=== PATIENT | female | born 1970 | race Caucasian/White ===

== ENCOUNTER → 2022-04-06 01:28 | Outpatient (CLI) | payer BC, SELFPAY ==
--- NOTE | 2022-04-06 07:45 | DI.MAMMO_ITS ---
Exam(s) MAMMO SCREENING EXAM: MAMMO SCREENING CLINICAL HISTORY: screening,Z12.39 TECHNIQUE: Bilateral full field digital CC and MLO mammographic images were obtained with 3D tomosyn thesis and utilizing computer aided detection (CAD). COMPARISON: Available for comparison. FINDINGS: Masses/Architectural Distortion: There has been interval increase in size of the nodule in the upper outer quadrant of the right breast. It measures 8.4 mm compared to 5.5 mm. There is a question of a symmetric breast tissue inferior to the nodule on the MLO view. Microcalcifications: No suspicious pleomorphic-type are seen. Skin Thickening/Nipple Retraction: None. IMPRESSION: 1. Suspicious areas in the right breast as described above. These area should be further evaluated w ith spot compression views. 2. Ultrasound may be indicated at that time. BI-RADS Category 0 - Assessment Incomplete: Need additional imaging evaluation Breast Density - Category B - Scattered areas of fibroglandular density Breast density category C or D implies that the patient has dense breast tissue. Dense breast tissue is very common and is not abnormal but dense breast tissue can make it harder to find cancer on a ma mmogram. Also, dense breast tissue may increase their breast cancer risk. This information about the result of the mammogram report was provided to the patient to raise their awareness. Use this report when you speak with the patient about their risks for breast cancer, which includes their family hist ory. At that time, you may recommend for more screening tests (Ultrasound or MRI) as they might be us eful based on their risk. A negative radiographic report should not delay biopsy if a dominant or clinically suspicious mass is present. Up to ten percent of cancers are not identified on mammography. A negative report may reinforce clinical impression. Adenosis and dense breasts may obscure an underlying neoplasm. False positive reports average 6 to 10%. Patient will receive a letter notifying them of these results.
== END ==
PROVIDERS: PCP Nurse Practitioner Family; Visit Provider Nurse Practitioner Family
DX: Z12.31 Encounter for screening mammogram for malignant neoplasm of breast (principal); R92.8 Other abnormal and inconclusive findings on diagnostic imaging of breast; N63.11 Unspecified lump in the right breast, upper outer quadrant
CPT/HCPCS: 77063; 77067

== ENCOUNTER 2022-04-06 02:47 | Outpatient (CLI) | payer BC, SELFPAY ==
[2022-04-06 11:31] LABS: Abs Immature Grans 0.02 10^3/uL (0.0-0.06); Absolute Basophil Count 0.03 10^3/uL (0.0-0.2); Absolute Eosinophil Count 0.16 10^3/uL (0.0-0.7); Absolute Lymphocyte Count 2.32 10^3/uL (1.2-3.4); Absolute Monocyte Count 0.44 10^3/uL (0.1-0.8); Absolute Neutrophil Count 3.89 10^3/uL (1.2-6.7); Basophils % 0.4; Eosinophils % 2.3; HCT 43.7 % (36.0-46.0); HGB 14.3 g/dL (11.2-15.7); Immature Grans % 0.3; Lymphocytes % 33.8; MCH 29.3 pg (27.0-33.0); MCHC 32.7 % (32.0-36.0); MCV 90 fL (80-95); MPV 9.7 fL (8.0-11.0); Monocytes % 6.4; Neutrophils % 56.8; Platelet Count 287 10^3/uL (130-400); RBC 4.88 10^6/uL (3.93-5.22); RDW 12.5 % (11.7-14.6); RDW-SD 40.8 fL; WBC 6.86 10^3/uL (4.4-10.8)
[2022-04-06 11:48] LABS: ALT 73 U/L (14-59); AST 35 U/L (15-37); Albumin 4.1 g/dL (3.4-5.0); Alkaline Phosphatase 102 U/L (46-116); Anion Gap 7.4 mmol/L (3-11); BUN 17 mg/dL (7-18); Bilirubin, Total 0.4 mg/dL (0.2-1.0); CO2 28.6 mmol/L (21.0-32.0); Calcium 9.6 mg/dL (8.5-10.1); Calculated LDL 127 mg/dL (<100); Chloride 100 mmol/L (98-107); Cholesterol 226 mg/dL (<200); Estimated GFR 67.78 (mL/min/1.73m2); Glucose 87 mg/dL (74-106); HDL Cholesterol 68 mg/dL (40-60); Potassium 3.9 mmol/L (3.5-5.1); Sodium 136 mmol/L (136-145); TSH (W/Ref FT4) 2.15 uIU/mL (0.36-3.74); Total Protein 8.2 g/dL (6.4-8.2); Triglyceride 158 mg/dL (<150)
[2022-04-06 19:27] LABS: Rheumatoid Factor <8.6 IU/mL (<12.0)
[2022-04-07 09:34] LABS: Cyclic Citrullinated Peptide <2.5 U/mL (<5.0)
[2022-04-07 09:41] LABS: Hepatitis C Ab w Rflx HCV PCR Negative (Negative)
[2022-04-07 10:29] LABS: HIV-1/2 Ag & Ab Screen Negative (Negative)
[2022-04-08 16:01] LABS: ANA Interpretation Negative (Negative)
[2022-04-12 13:33] LABS: dsDNA Ab, IgG <12.3 IU/mL (<30.0)
== END 2022-04-06 02:48 | disposition home or self-care (01) ==
LOC: LBO 02:47
PROVIDERS: PCP Nurse Practitioner Family; Visit Provider Nurse Practitioner Family
DX: M32.9 Systemic lupus erythematosus, unspecified (principal); R63.5 Abnormal weight gain; M79.18 Myalgia, other site; M25.541 Pain in joints of right hand; M25.542 Pain in joints of left hand; Z13.220 Encounter for screening for lipoid disorders; Z86.2 Personal history of diseases of the blood and blood-forming organs and certain disorders involving the immune mechanism; Z11.4 Encounter for screening for human immunodeficiency virus [HIV]; Z11.59 Encounter for screening for other viral diseases
CPT/HCPCS: 36415; 80053; 80061; 86200; 86803; 87389; 84443; 85025; 86038; 86225; 86235; 86431

== ENCOUNTER 2022-04-20 02:31 | Outpatient (CLI) | payer OTHER, SELFPAY ==
--- NOTE | 2022-04-20 | DI.US_ITS ---
Exam(s) MG MAMMO SCREEN CALL BACK UNI US BREAST RT LIMITED EXAM: MG MAMMO SCREEN CALL BACK UNI CLINICAL HISTORY: F/U MAMMO, INTERVAL INCREASE SIZE OF NODULE UOQ RT BREAST,R92.8,? ASYMMETRI TECHNIQUE: Mammograms were interpreted according to the usual protocol including computer analysis w i-drive CAD system, tomosynthesis and C-view imaging. COMPARISON: FINDINGS: Additional mammographic views of the right breast and right breast ultrasound are interpreted in conj unction. These examinations were obtained to evaluate an area of nodularity in the 9 o'clock positio n in the right breast. This is well circumscribed but lobulated on mammography and has a similar palmer earance on ultrasound examination today. There is Alana lesional vascular flow but no definite intral esional vascular flow. The lesion measures about 6 by 5 millimeters in diameter and is horizontally oriented with cystic and solid internal components. Findings may represent an intramammary lymph nod e. Malignancy not entirely excluded but unlikely.review of prior mammogram from March 2015 shows a smaller but similarly shaped nodule in this location at that time which would also suggest this is an intra mammary lymph node which is somewhat larger on today's examination than previously seen. IMPRESSION: No specific evidence of malignancy. Follow-up unilateral left breast mammogram and left breast ultra sound recommended in 6 months. BI-RADS Category 3 - 6 month - Probably Benign Finding: Recommend follow-up mammography in 6 months Breast Density - Category B - Scattered areas of fibroglandular density
== END 2022-04-20 02:51 ==
PROVIDERS: PCP Nurse Practitioner Family; Visit Provider Nurse Practitioner Family
DX: Z12.31 Encounter for screening mammogram for malignant neoplasm of breast (principal); R92.8 Other abnormal and inconclusive findings on diagnostic imaging of breast; N63.11 Unspecified lump in the right breast, upper outer quadrant
CPT/HCPCS: 76642; 77063; 77067

== ENCOUNTER 2022-05-31 03:11 | Outpatient (CLI) | payer OTHER, SELFPAY ==
[2022-05-31 08:48] LABS: ALT 62 U/L (14-59); AST 28 U/L (15-37); Alkaline Phosphatase 102 U/L (46-116); Bilirubin, Direct 0.1 mg/dL (0.0-0.2); Bilirubin, Total 0.4 mg/dL (0.2-1.0); Total Protein 8.1 g/dL (6.4-8.2)
== END 2022-05-31 03:12 | disposition home or self-care (01) ==
LOC: LBO 03:11
PROVIDERS: PCP Nurse Practitioner Family; Visit Provider Nurse Practitioner Family
DX: R79.89 Other specified abnormal findings of blood chemistry (principal)
CPT/HCPCS: 36415; 80076

== ENCOUNTER 2022-11-04 00:45 | Outpatient (CLI) | payer OTHER, SELFPAY ==
--- NOTE | 2022-11-04 | DI.US_ITS ---
Exam(s) MG MAMMO DIAGNOSTIC UNI US BREAST RT LIMITED EXAM: MG MAMMO DIAGNOSTIC UNI and U/S breast RT limited CLINICAL HISTORY: per DI; 6 mo f/u abnormal mammo, ABNL MAMMO, R92.8. TECHNIQUE: Craniocaudal and mediolateral oblique Full Field Digital Mammography views of the right b reast with Computer Aided Diagnosis followed by Tomosynthesis and right breast ultrasound. COMPARISON: Comparison is made with prior examinations. FINDINGS: Mammography/Tomosynthesis: Masses/Architectural Distortion: There is a well-circumscribed nodule again seen in the outer right b reast which is unchanged. There are no areas of architectural distortion. Microcalcifictions: No suspicious pleomorphic-type are seen. Skin Thickening/Nipple Retraction: None. Limited right breast US: Echotexture: Normal appearance of the glandular tissue. Shadowing: No suspicious foci. Cyst: None. Solid lesions: The well-circumscribed hypoechoic nodule in the right breast is unchanged compared to the prior examination. Ductal dilation: None. IMPRESSION: 1. Stable appearance of a right breast nodule. 2. Follow-up examination in 6 months is recommended to include mammogram and right breast ultrasound. At that time, the patient should have there screening left mammogram. 3. The findings were discussed with the patient on the date of the examination. BI-RADS Category 3 - 6 month - Probably Benign Finding: Recommend follow-up imaging in 6 months Breast Density - Category B - Scattered areas of fibroglandular density Breast density Category C or D implies that the patient has dense breast tissue. Dense breast tissue can make it harder to find cancer on a mammogram. Dense breast tissue is also associated with an incr eased risk of breast cancer. This information about the result of the mammogram report was provided to the patient to raise their awareness. Use this report when you speak with the patient about their risks for breast cancer, which includes their family history. At that time, you may recommend additional screening tests (Ultrasoun d or MRI) as these tests may add significant information. A negative radiographic report should not delay biopsy if a dominant or clinically suspicious mass is present. Up to ten percent of cancers are not identified on mammography. A negative report may reinforce clinical impression. Adenosis and dense breasts may obscure an underlying neoplasm. False positive reports average 6 to 10%. Patient will receive a letter notifying them of these results.
== END 2022-11-04 01:05 ==
LOC: DI 00:46
PROVIDERS: PCP Nurse Practitioner Family; Visit Provider Nurse Practitioner Family
DX: R92.8 Other abnormal and inconclusive findings on diagnostic imaging of breast (principal); Z12.31 Encounter for screening mammogram for malignant neoplasm of breast
CPT/HCPCS: 76642; 77061; 77065; G0279

== ENCOUNTER → 2023-04-14 00:50 | Outpatient (CLI) | payer OTHER, SELFPAY ==
--- NOTE | 2023-04-14 07:45 | DI.US_ITS ---
Exam(s) US BREAST RT LIMITED MG MAMMO DIAGNOSTIC BI EXAM: MAMMO DIAGNOSTIC BI and U/S breast RT limited CLINICAL HISTORY: 6 mo f/u,r92.8. TECHNIQUE: Craniocaudal and mediolateral oblique Full Field Digital Mammography views of the bilater al breast with Computer Aided Diagnosis followed by Tomosynthesis and right breast ultrasound. COMPARISON: Comparison is made with prior examinations. FINDINGS: Mammography/Tomosynthesis: Masses/Architectural Distortion: The nodule in the upper outer quadrant of the right breast appears s maller compared to the prior examination. No new nodules are seen. No areas of architectural distor tion are present. Microcalcifictions: No suspicious pleomorphic-type are seen. Skin Thickening/Nipple Retraction: None. Limited right breast US: Echotexture: Normal appearance of the glandular tissue. Shadowing: No suspicious foci. Cyst: None. Solid lesions: The nodule at the 9 o'clock position of the right breast now measures 0.5 x 0.4 cm. T his compares to 0.6 x 0.7 cm. Ductal dilation: None. IMPRESSION: 1. No evidence of malignancy is noted. 2. A six-month follow-up right mammogram and ultrasound is requested for re-evaluation. 3. The findings were discussed with the patient on the date of the examination. BI-RADS Category 3 - 6 month - Probably Benign Finding: Recommend follow-up imaging in 6 months Breast Density - Category B - Scattered areas of fibroglandular density Breast density Category C or D implies that the patient has dense breast tissue. Dense breast tissue can make it harder to find cancer on a mammogram. Dense breast tissue is also associated with an incr eased risk of breast cancer. This information about the result of the mammogram report was provided to the patient to raise their awareness. Use this report when you speak with the patient about their risks for breast cancer, which includes their family history. At that time, you may recommend additional screening tests (Ultrasoun d or MRI) as these tests may add significant information. A negative radiographic report should not delay biopsy if a dominant or clinically suspicious mass is present. Up to ten percent of cancers are not identified on mammography. A negative report may reinforce clinical impression. Adenosis and dense breasts may obscure an underlying neoplasm. False positive reports average 6 to 10%. Patient will receive a letter notifying them of these results.
== END ==
PROVIDERS: PCP Nurse Practitioner Family; Visit Provider Nurse Practitioner Family
DX: Z12.31 Encounter for screening mammogram for malignant neoplasm of breast (principal); N63.15 Unspecified lump in the right breast, overlapping quadrants
CPT/HCPCS: 76642; 77062; 77066; G0279

== ENCOUNTER → 2023-10-20 03:02 | Outpatient (CLI) | payer OTHER, SELFPAY ==
--- NOTE | 2023-10-20 07:45 | DI.US_ITS ---
Exam(s) MG MAMMO DIAGNOSTIC UNI US BREAST RT LIMITED EXAM: MG MAMMO DIAGNOSTIC UNI and U/S breast RT limited CLINICAL HISTORY: RT INTERVAL F/U, R92.8 6 MO F/U RT BREAST. TECHNIQUE: Craniocaudal and mediolateral oblique Full Field Digital Mammography views of the right b reast with Computer Aided Diagnosis followed by Tomosynthesis and right breast ultrasound. COMPARISON: Comparison is made with prior examinations. FINDINGS: Mammography/Tomosynthesis: Masses/Architectural Distortion: The nodule in the upper outer quadrant of the right breast appears s table in size. No new nodules are seen. No areas of architectural distortion are present. Microcalcifictions: No suspicious pleomorphic-type are seen. Skin Thickening/Nipple Retraction: None. Limited right breast US: Echotexture: Normal appearance of the glandular tissue. Shadowing: No suspicious foci. Cyst: None. Solid lesions: There has been no change in appearance of the nodule seen at the 9 o'clock position of the right breast 9 cm from the nipple when compared to the prior examination. Ductal dilation: None. IMPRESSION: 1. No evidence of malignancy is noted. 2. Unless there is more urgent need, follow-up screening mammography is recommended, as per [place] [employer] guidelines. 3. The findings were discussed with the patient on the date of the examination. BI-RADS Category 2 - Benign Findings Breast Density - Category B - Scattered areas of fibroglandular density Breast density Category C or D implies that the patient has dense breast tissue. Dense breast tissue can make it harder to find cancer on a mammogram. Dense breast tissue is also associated with an incr eased risk of breast cancer. This information about the result of the mammogram report was provided to the patient to raise their awareness. Use this report when you speak with the patient about their risks for breast cancer, which includes their family history. At that time, you may recommend additional screening tests (Ultrasoun d or MRI) as these tests may add significant information. A negative radiographic report should not delay biopsy if a dominant or clinically suspicious mass is present. Up to ten percent of cancers are not identified on mammography. A negative report may reinforce clinical impression. Adenosis and dense breasts may obscure an underlying neoplasm. False positive reports average 6 to 10%. Patient will receive a letter notifying them of these results.
== END ==
PROVIDERS: PCP Nurse Practitioner Family; Visit Provider Nurse Practitioner Adult Health
DX: R92.8 Other abnormal and inconclusive findings on diagnostic imaging of breast (principal); Z12.31 Encounter for screening mammogram for malignant neoplasm of breast
CPT/HCPCS: 76642; 77061; 77065; G0279

== ENCOUNTER 2023-11-30 14:39 | Outpatient (REF) | payer OTHER, SELFPAY | END 2023-11-30 14:40 | disposition home or self-care (01) | LOC: LBN 14:39 | PROVIDERS: PCP Nurse Practitioner Family; Visit Provider Nurse Practitioner Family | DX: R10.9 Unspecified abdominal pain (principal); R82.998 Other abnormal findings in urine | CPT/HCPCS: 87077; 87086; 87186 ==

== ENCOUNTER 2024-05-21 01:16 | Outpatient (CLI) | payer BC, SELFPAY ==
--- NOTE | 2024-05-21 08:40 | DI.MAMMO_ITS ---
Exam(s) MAMMO SCREENING EXAM: MAMMO SCREENING CLINICAL HISTORY: screening,z12.39 TECHNIQUE: Bilateral full field digital CC and MLO mammographic images were obtained with 3D tomosyn thesis and utilizing computer aided detection (CAD). COMPARISON: Available for comparison. FINDINGS: Masses/Architectural Distortion: There has been interval decrease in size of a nodule in the upper ou ter quadrant of the right breast. No new nodules are seen. No areas of architectural distortion are present. Microcalcifications: No suspicious pleomorphic-type are seen. Skin Thickening/Nipple Retraction: None. IMPRESSION: 1. No significant interval change with no specific features of malignancy noted. 2. Unless there is more urgent need, screening mammography is recommended, as per [employer] guidelines. BI-RADS Category 2 - Benign Findings Breast Density - Category B - Scattered areas of fibroglandular density Breast density category C or D implies that the patient has dense breast tissue. Dense breast tissue is very common and is not abnormal but dense breast tissue can make it harder to find cancer on a ma mmogram. Also, dense breast tissue may increase their breast cancer risk. This information about the result of the mammogram report was provided to the patient to raise their awareness. Use this report when you speak with the patient about their risks for breast cancer, which includes their family hist ory. At that time, you may recommend for more screening tests (Ultrasound or MRI) as they might be us eful based on their risk. A negative radiographic report should not delay biopsy if a dominant or clinically suspicious mass is present. Up to ten percent of cancers are not identified on mammography. A negative report may reinforce clinical impression. Adenosis and dense breasts may obscure an underlying neoplasm. False positive reports average 6 to 10%. Patient will receive a letter notifying them of these results.
== END 2024-05-21 01:36 ==
PROVIDERS: PCP Nurse Practitioner Family; Visit Provider Nurse Practitioner Family
DX: Z12.31 Encounter for screening mammogram for malignant neoplasm of breast (principal); R92.323 Mammographic fibroglandular density, bilateral breasts; D24.1 Benign neoplasm of right breast
CPT/HCPCS: 77063; 77067